=== PATIENT | female | born 1970 | race Caucasian/White ===

== ENCOUNTER 2021-02-04 15:00 | Emergency (ER) | payer MEDICAID ==
[~2021-02-04] VITALS: Ht 157.5 cm; Wt 50.3 kg
[~2021-02-04 15:00] MED LIST: IBUP-23 PO; OMEP20TA20 PO
[2021-02-04] MEDS ORDERED: ACETAMINOPHEN 325 MG TABLET PO ONE (15:15)
[2021-02-04] MEDS ORDERED: ACETAMINOPHEN ES 500 MG TABLET ONE (15:25)
[2021-02-04] MEDS ORDERED: ACET-2154 PO (16:21)
[2021-02-04] MEDS ORDERED: BACL10TA PO (16:21)
--- NOTE | 2021-02-04 16:31 | NUR ---
Patient discharged to home in stable condition. Written and verbal after care instructions given. Patient verbalizes understanding of instructions. Stressed follow up or return to ER for worsening s/s. pt able to tolerate sg wraps. decline crutches. aware of risks and benefits.
[2021-02-04 16:32] VITALS: BP 109/77
== END 2021-02-04 16:32 | disposition home or self-care (01) ==
LOC: ER 15:02
DX: M25.562 Pain in left knee (principal); M25.561 Pain in right knee; R26.2 Difficulty in walking, not elsewhere classified; F31.9 Bipolar disorder, unspecified; J45.909 Unspecified asthma, uncomplicated; Z79.899 Other long term (current) drug therapy
CPT/HCPCS: A4663; A9150

== ENCOUNTER 2021-02-09 21:09 | Emergency (ER) | payer MEDICAID ==
[~2021-02-09] VITALS: Ht 157.5 cm; Wt 50.3 kg
[~2021-02-09 21:09] MED LIST changes: +ACET-2154 PO; +BACL10TA PO
--- NOTE | 2021-02-09 21:35 | NUR ---
Dr. Chapman at bedside to do mse.
--- NOTE | 2021-02-09 21:56 | NUR ---
Patient discharged to home in stable condition. Written and verbal after care instructions given. Patient verbalizes understanding of instructions. Stressed follow up or return to ER for worsening s/s.
[2021-02-09 22:07] VITALS: BP 123/55
== END 2021-02-09 21:55 | disposition home or self-care (01) ==
LOC: ER 21:10
DX: R23.8 Other skin changes (principal); F31.9 Bipolar disorder, unspecified; J45.909 Unspecified asthma, uncomplicated; Z86.69 Personal history of other diseases of the nervous system and sense organs; G89.29 Other chronic pain; M54.9 Dorsalgia, unspecified; K29.70 Gastritis, unspecified, without bleeding; Z79.899 Other long term (current) drug therapy
CPT/HCPCS: A4663

== ENCOUNTER 2021-07-15 14:09 | Emergency (ER) | payer MEDICAID ==
[~2021-07-15] VITALS: Ht 157.5 cm; Wt 48.5 kg
--- NOTE | 2021-07-15 14:43 | NUR ---
PT IS IN ROOM #2B. DR BUENO EVALUATED THE PT.
[2021-07-15] MEDS ORDERED: ACETAMINOPHEN 325 MG TABLET PO ONE (14:45)
[2021-07-15] MEDS ORDERED: ACETAMINOPHEN ES 500 MG TABLET ONE (14:56)
--- NOTE | 2021-07-15 14:57 | NUR ---
PT WAS D/C'd TO HOME. D/C INSTRUCTIONS GIVEN TO THE PT BY DR BUENO.
[2021-07-15 14:58] VITALS: BP 131/71
== END 2021-07-15 14:59 | disposition home or self-care (01) ==
LOC: ER 14:10
DX: G43.909 Migraine, unspecified, not intractable, without status migrainosus (principal); K21.9 Gastro-esophageal reflux disease without esophagitis; F31.30 Bipolar disorder, current episode depressed, mild or moderate severity, unspecified; Z79.899 Other long term (current) drug therapy; Z87.09 Personal history of other diseases of the respiratory system; R25.2 Cramp and spasm
CPT/HCPCS: A4663; A9150